=== PATIENT | male | born 1995 | race Caucasian/White ===

== ENCOUNTER 2019-03-20 11:00 | Emergency (ER) | payer OTHER ==
[~2019-03-20] VITALS: Ht 182.9 cm; Wt 99.8 kg
[2019-03-20] MEDS ORDERED: HYDMOR2 PO (12:06)
[2019-03-20] MEDS ORDERED: Zofran4 MG PO (12:06)
== END 2019-03-20 12:53 | disposition home or self-care (01) ==
LOC: ER 11:00
DX: T59.891A Toxic effect of other specified gases, fumes and vapors, accidental (unintentional), initial encounter (principal); T23.401A Corrosion of unspecified degree of right hand, unspecified site, initial encounter; T32.0 Corrosions involving less than 10% of body surface
CPT/HCPCS: 16020; 90471; 96374-59; 96375-59; 99283-25; J1170; J2405

== ENCOUNTER 2021-06-14 20:55 | Observation (INO) | payer OTHER ==
[~2021-06-14] VITALS: Ht 182.9 cm; Wt 116.6 kg
[~2021-06-14 20:55] MED LIST: HYDMOR2 PO; Zofran4 MG PO
[2021-06-14 23:19] LABS: BASOPHILS ABSOLUTE AUTO 0.04 K/mm3 (0.00-0.23); BASOPHILS PERCENT AUTO 0 % (0-2); EOSINOPHILS ABSOLUTE AUTO 0.02 K/mm3 (0.00-0.68); EOSINOPHILS PERCENT AUTO 0 % (0-6); Hemoglobin 15.8 g/dL (13.5-17.5); IMMATURE GRAN ABSOLUTE AUTO 0.09 K/mm3 (0.00-0.10); IMMATURE GRAN PERCENT AUTO 1 % (0-1); LYMPHOCYTES ABSOLUTE AUTO 0.83 K/mm3 (0.84-5.20); LYMPHOCYTES PERCENT AUTO 5 % (21-46); MONOCYTES ABSOLUTE AUTO 0.56 K/mm3 (0.16-1.47); MONOCYTES PERCENT AUTO 4 % (4-13); Mean Corpuscular HGB 29.4 pg (26.0-34.0); Mean Corpuscular HGB Conc 33.6 g/dL (31.5-36.5); Mean Corpuscular Volume 88 fL (80-100); NEUTROPHILS PERCENT AUTO 90 % (41-73); Platelet Count 272 K/mm3 (150-400); RDW Standard Deviation 41.8 fL (35.1-46.3); Red Blood Cell Count 5.37 M/mm3 (4.30-5.90); White Blood Cell Count 15.84 K/mm3 (4.00-11.30)
[2021-06-14 23:20] LABS: Alanine Aminotransfer (ALT/SGP 52 U/L (12-78); Albumin, Blood 4.5 g/dL (3.4-5.0); Alk Phos 139 U/L (50-136); Anion Gap 5 mmol/L (6-16); Aspartate Aminotrans (AST/SGOT 51 U/L (12-37); Bilirubin, Total 0.6 mg/dL (0.1-1.0); Blood Urea Nitrogen 12 mg/dL (8-24); Bun/Creatinine Ratio 14.2 (12.0-20.0); CO2, Blood 27 mmol/L (21-32); Chloride, Blood 103 mmol/L (98-108); Creatinine, Blood 0.85 mg/dL (0.60-1.20); Globulin, Blood 4.4 g/dL (2.2-4.0); Glomerular Filtration Rate >60 (60-); Glucose, Blood 152 mg/dL (70-99); Potassium, Blood 5.6 mmol/L (3.5-5.5); Sodium, Blood 135 mmol/L (136-145); Total Protein, Blood 8.9 g/dL (6.4-8.2)
[2021-06-15] MEDS ORDERED: Zofran4 MG PO (00:50)
[2021-06-15 03:03] LABS: Influenza A, PCR NEGATIVE (NEGATIVE); Influenza B, PCR NEGATIVE (NEGATIVE); Resp Syncytial Virus, PCR NEGATIVE (NEGATIVE); SARS-Cov-2 (COVID-19) PCR, MMC NEGATIVE (NEGATIVE)
--- NOTE | 2021-06-15 05:45 | NUR ---
SHIFT SUMMARY S/P APPY, A/O X4, VSS, NPO AT ADMIT, PAIN AT TOLERABLE LEVEL SINCE ARRIVAL TO THE FLOOR, ADMISSION COMPLETE, FLUIDS RUNNING TKO. NO ACUTE EVENTS THIS SHIFT. CALL LIGHT IN REACH, WILL CTM AND REPORT TO DAY RN.
--- NOTE | 2021-06-15 08:19 | NUR ---
pt out of room for surgery. pt in gown and voided prior to leaving.
--- NOTE | 2021-06-15 10:31 | NUR ---
PT BACK FROM PACU. 97% ON ROOM AIR. REPORTS ABDOMINAL PAIN AT 6/10, UNABLE TO TRY EATING AT THIS TIME, MEDICATED PER EMAR. PT REPORTS PLAN TO SLEEP AT THIS TIME, MOTHER AT BEDSIDE. LAP SITES CDI WITH GAUZE AND TEGADERM. CALL LIGHT IN REACH.
[2021-06-15] MEDS ORDERED: HYDR1TAB94 PO (13:26)
--- NOTE | 2021-06-15 16:01 | NUR ---
DISCHARGE S/P LAP APPY PT PAIN MANAGED PER EMAR WITH PO PAIN MEDICATIONS, PT UP AND AMBULATING HALLWAYS AND REPORTS FEELING BETTER WHILE WALKING. TOLERATED REGULAR DIET FOR LUNCH. NO NAUSEA NO INCREASED PAIN. LAP SITES REMAIN CDI. DISCHARGE INSTRUCTIONS GONE OVER WITH PATIENT AND MOTHER. PRESCRIPTIONS SENT WITH MOTHER WHO PICKED UP PRIOR TO DISCHARGE. IV REMOVED. PT DENIED FURTHER QUESTIONS.
== END 2021-06-15 16:03 | disposition home or self-care (01) ==
LOC: ER 20:55 → SURS 06-15 01:36 → ER 06-15 01:36 → SURS 06-15 02:42
PROVIDERS: Physician Assistant; Student in an Organized Health Care Education/Training Program; ADMIT Surgery
DX: K35.80 Unspecified acute appendicitis (principal); F12.90 Cannabis use, unspecified, uncomplicated; Z20.822 Contact with and (suspected) exposure to COVID-19
CPT/HCPCS: 0241U; 36415; 74177; 80053; 83690; 85025; 88304; 96361; 96374; 96375; 99285-25; A9270; G0378; J0330; J1100; J1885; J2270; J2405; J2543; J2550; J2704; J2710; J3010; J7030; J7040; Q9967